=== PATIENT | female | born 1950 | race Asian ===

== ENCOUNTER 2017-02-07 17:43 | Emergency (ER) | payer MEDICARE, MEDICAID ==
[~2017-02-07] VITALS: Ht 144.8 cm; Wt 63.8 kg
[~2017-02-07 17:43] MED LIST: BACL-19 PO; BUDE10.2 PO; FOLI0.4T2 PO; HYDR12.53 PO; LISI2.5T PO; RANI-276 PO; RANI150T8 PO; ROSU10TA
[2017-02-07 17:46] VITALS: BP 131/83
[2017-02-07] MEDS ORDERED: FLUORESCEIN OPHTHALMIC 1 MG STRIP ONE (18:23)
[2017-02-07] MEDS ORDERED: CIPROFLOXACIN OPHTH SOLN 0.3%, 5ML EACHEYE SCH (18:30)
== END 2017-02-07 19:33 | disposition home or self-care (01) ==
LOC: ED 19:00
DX: H10.023 Other mucopurulent conjunctivitis, bilateral (principal); J44.9 Chronic obstructive pulmonary disease, unspecified; I10 Essential (primary) hypertension; E78.00 Pure hypercholesterolemia, unspecified
CPT/HCPCS: 99282

== ENCOUNTER 2017-08-14 17:26 | Emergency (ER) | payer OTHER, MEDICAID ==
[~2017-08-14] VITALS: Ht 144.8 cm; Wt 63.6 kg
[2017-08-14 17:28] VITALS: BP 129/85
[2017-08-14] MEDS ORDERED: ALBUTEROL SULFATE 2.5 MG/3 ML NPPB ONE (18:00)
[2017-08-14] MEDS ORDERED: ALBUTEROL SULFATE 2.5 MG/3 ML ONE (18:23)
[2017-08-14] MEDS ORDERED: BENZONATATE 100 MG CAPSULE PO ONE (18:30)
== END 2017-08-14 18:34 | disposition home or self-care (01) ==
LOC: ED 18:28
DX: J02.8 Acute pharyngitis due to other specified organisms (principal); J44.9 Chronic obstructive pulmonary disease, unspecified; I10 Essential (primary) hypertension; Z87.891 Personal history of nicotine dependence; H92.02 Otalgia, left ear
CPT/HCPCS: 71046; 93005; 94640; 99284; J7613

== ENCOUNTER 2017-10-09 02:51 | Emergency (ER) | payer OTHER, MEDICAID ==
[~2017-10-09] VITALS: Ht 152.4 cm; Wt 65.0 kg
[~2017-10-09 02:51] MED LIST changes: +ATOR20TA9 PO; +BENZ100C PO; +DOXY100T PO; +GABA300C10 PO; +HYDR10TA4 PO; +LISI-167 PO; +NAPR500T4 PO; +PRED10TA PO
[2017-10-09 02:54] VITALS: BP 131/88
[2017-10-09 04:10] LABS: BASOPHILS # (AUTO) 0.05 x10^3/uL (0-0.1); BASOPHILS % (AUTO) 1 % (0-1); EOSINOPHILS # (AUTO) 0.12 x10^3/uL (0-0.4); EOSINOPHILS % (AUTO) 2 % (1-7); LYMPHOCYTES % (AUTO) 37 % (22-44); MD NO; MEAN CORPUSCULAR HEMOGLOBIN 30.5 pg (27.0-34.8); MEAN CORPUSCULAR HGB CONC 33.4 g/dL (32.4-35.8); MEAN CORPUSCULAR VOLUME 91.2 fL (80-100); MEAN PLATELET VOLUME 7.6 fL (7.4-10.4); MONOCYTES # (AUTO) 0.47 x10^3/uL (0.2-0.8); MONOCYTES % (AUTO) 7 % (2-9); NEUTROPHILS # (AUTO) 3.67 x10^3/uL (1.8-6.8); NEUTROPHILS % (AUTO) 54 % (42-75); PLATELET COUNT 256 x10^3/uL (130-400); RED BLOOD COUNT 4.39 x10^6/uL (3.82-5.3); RED CELL DISTRIBUTION WIDTH 13.9 % (9.6-15.2)
[2017-10-09 04:13] LABS: ALBUMIN 3.7 g/dL (3.4-5.0); ANION GAP 9 mmol/L (5-15); CALCIUM 8.8 mg/dL (8.5-10.1); CHLORIDE 109 mmol/L (98-107); CREATININE 0.54 mg/dL (0.55-1.02)
[2017-10-09 04:17] LABS: TROPONIN I < 0.015 ng/mL (0.000-0.045)
== END 2017-10-09 05:43 | disposition home or self-care (01) ==
LOC: ED 04:27
DX: I10 Essential (primary) hypertension (principal); F41.1 Generalized anxiety disorder; F43.0 Acute stress reaction; E78.00 Pure hypercholesterolemia, unspecified; J44.9 Chronic obstructive pulmonary disease, unspecified
CPT/HCPCS: 36415; 80048; 82040; 84484; 85025; 93005; 99285